=== PATIENT | male | born 1960 | race Caucasian/White ===

== ENCOUNTER 2016-12-10 21:39 | Emergency (ER) | payer OTHER | END 2016-12-10 23:50 | disposition home or self-care (01) | LOC: CFTX 21:39 | DX: S81.851A Open bite, right lower leg, initial encounter (principal); F17.210 Nicotine dependence, cigarettes, uncomplicated; W54.0XXA Bitten by dog, initial encounter | CPT/HCPCS: 12004; 99283 ==

== ENCOUNTER 2016-12-18 18:36 | Emergency (ER) | payer OTHER | END 2016-12-18 18:40 | disposition home or self-care (01) | LOC: CFTX 18:36 | DX: L03.115 Cellulitis of right lower limb (principal); R03.0 Elevated blood-pressure reading, without diagnosis of hypertension; F17.210 Nicotine dependence, cigarettes, uncomplicated | CPT/HCPCS: 99282; 99283 ==

== ENCOUNTER 2016-12-23 18:09 | Emergency (ER) | payer OTHER | END 2016-12-23 18:30 | disposition left against medical advice (07) | LOC: CED 18:09 | DX: Z53.21 Procedure and treatment not carried out due to patient leaving prior to being seen by health care provider (principal) ==

== ENCOUNTER 2016-12-24 10:32 | Emergency (ER) | payer OTHER | END 2016-12-24 11:18 | disposition home or self-care (01) | LOC: CFTX 10:32 | DX: S81.811D Laceration without foreign body, right lower leg, subsequent encounter (principal); F17.210 Nicotine dependence, cigarettes, uncomplicated | CPT/HCPCS: 99281 ==